=== PATIENT | male | born 1955 | race Caucasian/White ===

== ENCOUNTER → 2017-05-01 | Outpatient (CLI) | payer MEDICARE, BC, MEDICAID ==
[2016-07-07 08:31] VITALS: BP 136/79
[~2017-05-01] MED LIST: ALBUTEROL SULF0.5 M1 IH; ALBUTEROL2.5 MG/3 M IH; ANUCORT HC25 MG RC; ATROVENT I0.2 MG/1 M IH; CALCIUM WITH VI1 TAB PO; CEPHALEXIN250 M1 PO; COLACE1 SUP PO; COLACE100 M1 PO; DEPAKOTE250 M1 PO; DEPAKOTE250 MG PO; DEPAKOTE500 M1 PO; DEPAKOTE500 MG PO; DIVALPROEX SOD500 M1 PO; ENOXAPARIN40 MG/0.1 SQ; FISH OIL 1000MG1 CAP PO; FISH OIL1000 MG PO; FLOMAX PO; GOOD NEIGHBOR325 MG PO; IPRATROPIUM BROM3 M1 IH; KEPPRA1000 MG PO; LEVAQUIN 5500 MG/TA1 PO; LISINOPRIL-HYDR1 TA1 PO; LISINOPRIL/HCTZ1 TA2 PO; LISINOPRIL10 MG PO; LISINOPRIL20 MG PO; LOPERAMIDE2 MG PO; LOPRESSOR100 M1 PO; METOPROLOL SUC100 MG PO; METOPROLOL TART25 MG PO; MIRALAX PA17 GM/Dose PO; MUCINEX 60600 MG/TA1 PO; PAIN RELIEVER500 M2 PO; PEG 335017 GM/Dose PO; PERI-COLACE 301 SGL PO; PREDNISONE10 MG PO; PREDNISONE20 MG PO; SIMVASTATIN20 MG PO; TEGRETOL PO; TEGRETOL200 MG PO; TUSSIN DM 10 M118 ML PO; TYLENOL 325MG325 M1 PO; TYLENOL 325MG325 MG PO; TYLENOL 500MG500 MG PO; VIBRAMYCIN100 MG PO
[2017-05-01 15:35] LABS: ALBUMIN 3.4 g/dL (3.5-5.0); BUN/CREATININE RATIO 38.7 (6.0-26.0); CALCIUM 9.1 mg/dL (8.4-10.2); POTASSIUM 4.3 mmol/L (3.6-5.0); TOTAL BILIRUBIN 0.5 mg/dL (0.2-1.3); TOTAL PROTEIN 6.2 g/dL (6.3-8.2)
[2017-05-01 16:32] LABS: URINE WBC 0 /hpf (0-3)
[2017-05-01 18:01] LABS: URINE APPEARANCE CLEAR; URINE BILIRUBIN NEGATIVE (NEGATIVE); URINE BLOOD NEGATIVE (NEGATIVE); URINE COLOR YELLOW; URINE GLUCOSE NEGATIVE (NEGATIVE); URINE KETONE NEGATIVE (NEGATIVE); URINE LEUKOCYTE ESTERASE NEGATIVE (NEGATIVE); URINE NITRATE NEGATIVE (NEGATIVE); URINE PROTEIN(semi-quant) NEGATIVE (NEGATIVE); URINE UROBILINOGEN NORMAL (NORMAL)
== END ==
LOC: LAB 14:52
PROVIDERS: Family Medicine
DX: E78.00 Pure hypercholesterolemia, unspecified (principal); R39.15 Urgency of urination; R32 Unspecified urinary incontinence; I10 Essential (primary) hypertension; R56.1 Post traumatic seizures

== ENCOUNTER → 2017-05-01 | Outpatient (CLI) | payer MEDICARE, BC, MEDICAID ==
[2016-07-07 08:31] VITALS: BP 136/79
== END ==
LOC: LAB 16:16
DX: E78.00 Pure hypercholesterolemia, unspecified (principal); R39.15 Urgency of urination; R32 Unspecified urinary incontinence; I10 Essential (primary) hypertension; R56.1 Post traumatic seizures

== ENCOUNTER → 2017-05-07 | Outpatient (CLI) | payer MEDICARE, BC, MEDICAID ==
[2016-07-07 08:31] VITALS: BP 136/79
== END ==
LOC: LAB 09:02
DX: E78.00 Pure hypercholesterolemia, unspecified (principal); R73.9 Hyperglycemia, unspecified

== ENCOUNTER → 2017-08-12 | Outpatient (CLI) | payer MEDICARE, BC, MEDICAID ==
[2016-07-07 08:31] VITALS: BP 136/79
== END ==
LOC: RAD 10:03
DX: M25.572 Pain in left ankle and joints of left foot (principal); W19.XXXA Unspecified fall, initial encounter; M79.89 Other specified soft tissue disorders

== ENCOUNTER → 2017-08-29 | Outpatient (CLI) | payer MEDICARE, BC, MEDICAID ==
[2016-07-07 08:31] VITALS: BP 136/79
== END ==
LOC: RAD 14:04
DX: M19.072 Primary osteoarthritis, left ankle and foot (principal); M85.872 Other specified disorders of bone density and structure, left ankle and foot

== ENCOUNTER → 2017-09-04 | Outpatient (CLI) | payer MEDICARE, BC, MEDICAID ==
[2016-07-07 08:31] VITALS: BP 136/79
== END ==
LOC: RAD 10:00
DX: S92.212A Displaced fracture of cuboid bone of left foot, initial encounter for closed fracture (principal)

== ENCOUNTER → 2017-10-29 | Outpatient (CLI) | payer MEDICARE, BC, MEDICAID ==
[2016-07-07 08:31] VITALS: BP 136/79
== END ==
LOC: RAD 08:59
DX: S92.215D Nondisplaced fracture of cuboid bone of left foot, subsequent encounter for fracture with routine healing (principal); M85.872 Other specified disorders of bone density and structure, left ankle and foot; M79.9 Soft tissue disorder, unspecified

== ENCOUNTER 2017-12-26 08:52 | Emergency (ER) | payer MEDICARE, BC, MEDICAID ==
[~2017-12-26] VITALS: Wt 122.3 kg
[~2017-12-26 08:52] MED LIST changes: +CALCIUM WITH V1 EAC1 PO; -CALCIUM WITH VI1 TAB PO; -LOPRESSOR100 M1 PO; +METOPROLOL TAR100 M1 PO
[2017-12-26 09:31] LABS: HEMATOCRIT 44.1 % (42.0-52.0); HEMOGLOBIN 14.7 g/dL (13.5-18.0); MEAN CELL VOLUME 92 fl (78-100); MEAN CORPUSCULAR HEMOGLOBIN 31 pg (27-31); MEAN CORPUSCULAR HGB CONC 33 g/dL (33-37); MEAN PLATELET VOLUME 10.2 fl (7.4-10.4); PLATELET COUNT 125 K/mm3 (130-400); RED BLOOD COUNT 4.82 M/mm3 (4.20-5.60); RED CELL DISTRIBUTION WIDTH 13.4 % (11.5-14.5); WHITE BLOOD COUNT 11.5 K/mm3 (4.8-10.8)
[2017-12-26 09:37] LABS: ALBUMIN 3.5 g/dL (3.5-5.0); BUN/CREATININE RATIO 29.6 (6.0-26.0); CALCIUM 8.7 mg/dL (8.4-10.2); POTASSIUM 4.2 mmol/L (3.6-5.0); TOTAL BILIRUBIN 0.5 mg/dL (0.2-1.3); TOTAL PROTEIN 6.4 g/dL (6.3-8.2)
[2017-12-26 09:40] LABS: BAND 4 % (0-10); LYMPHOCYTE 11 % (20-51); MONOCYTE 14 % (3-10); NEUTROPHILS 71 % (42-75)
[2017-12-26 09:42] LABS: D-DIMER 0.51 mg/L FEU (0.15-0.50)
[2017-12-26 09:44] LABS: TROPONIN-I < 0.03 ng/mL (0.00-0.06)
[2017-12-26] MEDS ORDERED: DIVALPROEX SOD500 MG PO (10:22)
[2017-12-26] MEDS ORDERED: METOPROLOL TAR100 M1 PO (10:24)
[2017-12-26] MEDS ORDERED: IMODIUM A-D2 M2 PO (10:26)
[2017-12-26] MEDS ORDERED: ADVIL 200MG TA200 MG PO (10:26)
[2017-12-26] MEDS ORDERED: ROBAFEN DM COU118 ML PO (10:28)
[2017-12-26 14:04] VITALS: BP 153/74
== END 2017-12-26 14:07 | disposition other institution (70) ==
LOC: ED 08:52
PROVIDERS: Physician Assistant
DX: J18.9 Pneumonia, unspecified organism (principal); R09.02 Hypoxemia; J06.9 Acute upper respiratory infection, unspecified; Z79.82 Long term (current) use of aspirin; Z79.899 Other long term (current) drug therapy; I69.998 Other sequelae following unspecified cerebrovascular disease; I69.954 Hemiplegia and hemiparesis following unspecified cerebrovascular disease affecting left non-dominant side; I10 Essential (primary) hypertension; G40.802 Other epilepsy, not intractable, without status epilepticus
CPT/HCPCS: Q9967

== ENCOUNTER 2017-12-26 13:56 | Inpatient (IN) | payer MEDICARE, BC, MEDICAID ==
[~2017-12-26] VITALS: Wt 121.9 kg
[~2017-12-26 13:56] MED LIST changes: +ADVIL 200MG TA200 MG PO; +DIVALPROEX SOD500 MG PO; +IMODIUM A-D2 M2 PO; +ROBAFEN DM COU118 ML PO
--- NOTE | 2017-12-26 14:29 | NUR ---
ASSIST TO BED IN ROOM 204 X1 STAFF ASSIST. PATIENT ABLE TO RISE FROM W/C ON 2ND ATTEMPT WITH MINIMAL ASSIST. GAIT SLOW AND STEADY. DENIES SHORTNESS OF BREATH. OXYGEN REMAINS IN PLACE AT 2LPM PER NC. LAB AT BEDSIDE PRESENTLY FOR COLLECTION OF BLOOD CULTURES.
[2017-12-26 14:44] VITALS: BP 153/74
[2017-12-26 15:04] VITALS: BP 153/74
[2017-12-26 18:20] VITALS: BP 168/83
--- NOTE | 2017-12-26 19:30 | NUR ---
Report received from oNemy BABB. Patient resting supine in bed with bed alarm on. Call light in reach. Eyes closed. Oxygen in place at 2L/NC. No signs of pain or distress.
--- NOTE | 2017-12-26 20:30 | NUR ---
Assessment completed and HS medications given. Takes medications whole without difficulty. A/O x4. Denies pain. Denies shortness of breath. States has occasional cough. Unable to produced sputum. Educated on need for a sputum sample if he is able to produce any phelgm. Inquires on how long he needs to wear the oxygen. Educated on orders to keep saturations above 92% and that he wasn't holding those number in the ER. Ask patient if he was incontinent and he stated "no". On further inspection, bedpad and brief noted to be wet. Karen cares and brief change done by staff. Has fine rash to L groin area. Baby powder applied at this time. No other skin breakdown noted. INT to LFA flushed easily with 10 ML of NS. Repositoned to L side. Bed alarm on. Call light in reach.
[2017-12-26 23:00] VITALS: BP 121/67
[2017-12-27] VITALS (7 sets, daily range): BP systolic 110–154; BP diastolic 63–85
--- NOTE | 2017-12-27 02:12 | NUR ---
Incontinent of urine. Gown and brief and bedpad changed. Repositioned. IV Rocephin started. INT patent and flushed easily with NS. Bed alarm on. Call light in reach.
--- NOTE | 2017-12-27 06:27 | NUR ---
Awake all shift. Denies pain. No signs of respiratory distress. Unable to produce sputum for sputum culture. Rang call light every 30-45 minutes for various wants/needs. Incontinent of urine or called for urinal then did not pee. Repositioned by staff. Bed alarm on. Call light in reach.
--- NOTE | 2017-12-27 07:07 | NUR ---
Report to Noemy BABB
--- NOTE | 2017-12-27 07:20 | NUR ---
REPORT RECEIVED FROM JERRELL GARCÍA LPN
--- NOTE | 2017-12-27 07:50 | NUR ---
patient sitting up on edge of bed. shift assessment complete. patient alert and oriented x4. when asked how his night was states "kenny rough" reports that he didn't sleep well lastnight. reports that overall he is "feeling better" reports that his breathing feels better today states "seems to be improving" does report having shortness of breath at rest. on oxygen via nasal cannula at 2l. patient reports having productive cough. patient has history of stroke. has no movement in left upper ext. has very minimal movement in left lower ext. asks this nurse multiple times "do you think i'm getting better" patient assisted into recliner for breakfast. 2 person assist required for pivot transfer. patient uses quad cane gait belt in place. patient wears brace to left lower ext. patient slow to move left leg during pivot transfer. but is able to pivot to recliner. patient's call light within reach. chair alarm on.
[2017-12-27 08:27] LABS: HEMATOCRIT 42.7 % (42.0-52.0); HEMOGLOBIN 14.2 g/dL (13.5-18.0); MEAN CELL VOLUME 93 fl (78-100); MEAN CORPUSCULAR HEMOGLOBIN 31 pg (27-31); MEAN CORPUSCULAR HGB CONC 33 g/dL (33-37); MEAN PLATELET VOLUME 10.5 fl (7.4-10.4); PLATELET COUNT 110 K/mm3 (130-400); RED BLOOD COUNT 4.58 M/mm3 (4.20-5.60); RED CELL DISTRIBUTION WIDTH 13.3 % (11.5-14.5); WHITE BLOOD COUNT 6.9 K/mm3 (4.8-10.8)
[2017-12-27 08:36] LABS: BUN/CREATININE RATIO 27.9 (6.0-26.0); CALCIUM 8.3 mg/dL (8.4-10.2); POTASSIUM 4.2 mmol/L (3.6-5.0)
[2017-12-27 09:03] LABS: BAND 7 % (0-10); LYMPHOCYTE 21 % (20-51); MONOCYTE 16 % (3-10); NEUTROPHILS 56 % (42-75)
--- NOTE | 2017-12-27 15:50 | NUR ---
in with patient at this time.
--- NOTE | 2017-12-27 19:00 | NUR ---
BEDSIDE SHIFT REPORT RECIEVED FROM HOLLEY ARREDONDO. PATIENT SLEEPING IN BED, CALL LIGHT WITHIN REACH AND BED ALARM ON.
--- NOTE | 2017-12-27 20:45 | NUR ---
PATIENT RESTING IN BED. SHIFT ASSESSMENT COMPLETED AT THIS TIME. PATIENT A/O X4, DENIES PAIN. LUNGS COARSE IN BASES WITH EXPIRATORY WHEEZES IN UPPER LOBES, PATIENT REPORTS CLEAR PRODUCTIVE COUGH AND SHORTNESS OF BREATH AT REST. PATIENT ON 2L O2 VIA NASAL CANNULA. 20 G IV TO RIGHT WRIST CDI, FLUSHES EASILY WITHOUT BLOOD RETURN. LEFT GROIN REDDENED, BARRIER CREAM APPLIED. +2 PITTING EDEMA NOTED TO BLE. TURN AND TOILET Q2H CONTINUED. SCD'S ON. HS MEDICATIONS GIVEN WITHOUT DIFFICULTIES. PATIENT WITHOUT NEEDS AT THIS TIME, WILL CONTINUE TO MONITOR. CALL LIGHT WITHIN REACH AND BED ALARM ON.
[2017-12-28 03:02] VITALS: BP 144/79
[2017-12-28 06:22] VITALS: BP 121/80
--- NOTE | 2017-12-28 07:10 | NUR ---
bedside report received from thomas millan
--- NOTE | 2017-12-28 07:40 | NUR ---
patient lying in bed. shift assessment complete. patient alert and oriented x4. when asked how he was doing this morning states "i'm okay" reports that he feels as though he is "breathing better" this morning. denies shortness of breath or difficulties breathing. on oxygen via nasal cannula at 2L. has occasional cough that patient reports is productive. patient has coarse audible crackles to upper lobes bilaterally. exp wheezes in lower lobes. on oxygen via nasal cannula at 2l. patient has not had a bowel movement since admission and when asked when his last bowel movement was before admission states "a couple days before" bowel sounds audible in all quadrants. patient reports passing flatus. abd firm. patient's urine dark orange and concentrated. encouraged patient to make sure he is drinking a lot of water today. patient's call light within reach. bed alarm on.
--- NOTE | 2017-12-28 08:15 | NUR ---
Patient assisted up to recliner for breakfast. brief removed when patient was getting up to assess skin. patient has reddened buttocks. noted that patient has a very slightly raised pink macular rash to coccyx area. area is approximately grapefruit to cantaloupe sized. patient denies any itching or discomforts to the area. noted that patient does have 2 marble sized circular pink colored spots to left thigh. will continue to monitor.
--- NOTE | 2017-12-28 09:06 | NUR ---
dr. aguirre called and notified of patient's lungs sounds this morning and sp02.
[2017-12-28 09:55] LABS: EOS # 0.2 (0.04-0.40); EOS % 3.1 % (0.0-4.0); HEMATOCRIT 43.2 % (42.0-52.0); HEMOGLOBIN 14.1 g/dL (13.5-18.0); LYMPH# 0.9 (1.50-4.00); MEAN CELL VOLUME 94 fl (78-100); MEAN CORPUSCULAR HEMOGLOBIN 31 pg (27-31); MEAN CORPUSCULAR HGB CONC 33 g/dL (33-37); MEAN PLATELET VOLUME 10.2 fl (7.4-10.4); MONO # 0.5 (0.20-0.80); NEU # 3.8 (1.40-6.50); PLATELET COUNT 123 K/mm3 (130-400); RED BLOOD COUNT 4.61 M/mm3 (4.20-5.60); RED CELL DISTRIBUTION WIDTH 13.1 % (11.5-14.5); WHITE BLOOD COUNT 5.4 K/mm3 (4.8-10.8)
--- NOTE | 2017-12-28 09:57 | NUR ---
called and notified of patient's pco2 of 56. orders to keep oxygen on lowest amount possible while maintaining sp02 greater than 89%. oxygen lowered to 1l at this time.
--- NOTE | 2017-12-28 10:00 | NUR ---
patient's sp02 92% on 1L nasal cannula. decreased oxygen to 0.5 L at this time.
[2017-12-28 10:05] LABS: BUN/CREATININE RATIO 28.9 (6.0-26.0); CALCIUM 8.5 mg/dL (8.4-10.2)
[2017-12-28 11:00] VITALS: BP 133/75
[2017-12-28 15:10] VITALS: BP 134/84
--- NOTE | 2017-12-28 17:00 | NUR ---
THIS NURSE IN WITH MICA LAMINATING MACHINE FEEDER GETTING PATIENT UP FOR DINNER.NOTED THAT AREA TO SACRUM/COCCYX THAT RASH WAS FIRST NOTICED THIS MORNING HAS BECOME MORE PROMINANT AND BRIGHTER. THERE IS NOW THE MORE CENTRALIZED AREA TO COCCYX/SACRUM WITH PINK MACULAR RASH EXTENDING TO BOTH SIDES OF BACK/HIPS AND EXTENDS UP TO PATIENT'S SHOULDER ON LEFT SIDE OF BACK. THERE IS ALSO A SMALL AREA TO PATIENT'S CHEST. PATIENT REPORTS THAT AREA IS SLIGHTLY ITCHY. WILL NOTIFY .
[2017-12-28 18:31] VITALS: BP 123/80
--- NOTE | 2017-12-28 19:00 | NUR ---
BEDSIDE SHIFT REPORT RECIEVED FROM HOLLEY ARREDONDO. PATIENT RESTING IN BED, CALL LIGHT WITHIN REACH AND BED ALARM ON.
--- NOTE | 2017-12-28 20:55 | NUR ---
PATIENT RESTING IN BED. SHIFT ASSESSMENT COMPLETED AT THIS TIME. PATIENT A/O X4, DENIES PAIN. LUNGS DIMINISHED WITH EXPIRATORY WHEEZES THROUGHOUT, REPORTS PRODUCTIVE COUGH AND DENIES SHORTNESS OF BREATH. 1L O2 FLOWING VIA NASAL CANNULA. 20 G IV TO RIGHT FOREARM CDI, FLUSHES EASILY WITHOUT BLOOD RETURN. PATIENT WITH RASH TO LOWER BACK, DOES NOT COMPLAIN ABOUT ITCHING AT THIS TIME. HS MEDICATIONS GIVEN. PATIENT WITHOUT FURTHER NEEDS, WILL CONTINUE TO MONITOR. CALL LIGHT WITHIN REACH AND BED ALARM ON.
[2017-12-28 22:59] VITALS: BP 129/82
[2017-12-29 02:58] VITALS: BP 124/79
[2017-12-29 06:29] VITALS: BP 114/76
--- NOTE | 2017-12-29 07:10 | NUR ---
REPORT RECEIVED FROM HOLLEY STAUFFER
--- NOTE | 2017-12-29 08:00 | NUR ---
HOLLIE FROM [facility] CONTACTED AT THIS TIME TO SEE WHAT PATIENT'S BASELINE IS FAR MOBILITY AND IF HE IS INCONTINENT OF URINE OR IFHE HAS URINARY FREQUENCY. REPORTED THAT PATIENT IS ABLE TO WALK 1 JUANA FROM ROOM TO DINING AREA AND WALKS TO AND FROM THE BATHROOM DURING THE DAY USES THE URINAL AT NIGHT DUE TO FREQUENCY. HOLLIE ALSO REPORTS THAT PATIENT HAS HAD MULTIPLE FALLS IN THE PAST AND IS VERY WEARY OF NURSING STAFF HE DOESN'T KNOW. REPORTS THAT IF HE DOES NOT KNOW STAFF WELL OR DOESN'T TRUST THEM YET HE WONT REALLY ACT LIKE HE CAN MOVE AROUND AND DOESN'T GET UP WITH THEM BUT IF HE IS COMFORTABLE WITH YOU HE WILL GET UP FOR YOU AND PARTICIPATE. HOLLIE IS GOING TO COME OVER AT 1100 THIS MORNING AND HELP GET PATIENT UP WITH STAFF TO GO THROUGH HIS ROUTINE AND TO SEE IF PATIENT IS AT HIS BASELINE FAR MOBILITY AND IF THEY ARE COMFORTABLE WITH HIM COMING BACK TO [facility].
--- NOTE | 2017-12-29 08:00 | NUR ---
DR. TRINIDAD IN TO SEE PATIENT. THIS NURSE IN ROOM AT TIME.
--- NOTE | 2017-12-29 08:20 | NUR ---
HOLLIE FROM [facility] CONTACTED AT THIS TIME TO SEE WHAT PATIENT'S BASELINE IS FAR MOBILITY AND IF HE IS INCONTINENT OF URINE OR IFHE HAS URINARY FREQUENCY. REPORTED THAT PATIENT IS ABLE TO WALK 1 JUANA FROM ROOM TO DINING AREA AND WALKS TO AND FROM THE BATHROOM DURING THE DAY USES THE URINAL AT NIGHT DUE TO FREQUENCY. HOLLIE ALSO REPORTS THAT PATIENT HAS HAD MULTIPLE FALLS IN THE PAST AND IS VERY WEARY OF NURSING STAFF HE DOESN'T KNOW. REPORTS THAT IF HE DOES NOT KNOW STAFF WELL OR DOESN'T TRUST THEM YET HE WONT REALLY ACT LIKE HE CAN MOVE AROUND AND DOESN'T GET UP WITH THEM BUT IF HE IS COMFORTABLE WITH YOU HE WILL GET UP FOR YOU AND PARTICIPATE. HOLLIE IS GOING TO COME OVER AT 1100 THIS MORNING AND HELP GET PATIENT UP WITH STAFF TO GO THROUGH HIS ROUTINE AND TO SEE IF PATIENT IS AT HIS BASELINE FAR MOBILITY AND IF THEY ARE COMFORTABLE WITH HIM COMING BACK TO [facility].
[2017-12-29 11:09] VITALS: BP 136/87
--- NOTE | 2017-12-29 11:30 | NUR ---
KELLY SALAZAR EMPLOYEES HOLLIE AND OTHER [employer] OPERATOR FROM FACILITY IN PATIENT'S ROOM TO SHOW NURSING STAFF PATIENT'S ROUTINE FOR TRANSFERING AND TO EVALUATE HOW HE IS CURRENTLY GETTING AROUND TO SEE IF PATIENT IS BACK TO BASELINE AND IF HE IS PHYSICALLY STRONG ENOUGH TO GO BACK TO [facility] [place]. HOLLIE REPORTS THAT PATIENT IS BACK TO BASELINE FROM HER ENCOUNTER AND THAT SHE FEELS COMFORTABLE WITH PATIENT COMING BACK AT THIS POINT IF FEELS THOUGH HE IS MEDICALLY STABLE AND READY FOR DISCHARGE. LARS REPORTED TO KELLY SALAZAR EMPOLYEES THAT HE WAS HAPPY WITH HIS CARE HERE AT THE HOSPITAL AND WHEN ASKED IF HE WANTED THEM TO WALK HIM BACK TO CHAIR OR IF HE FELT THOUGH THE NURSING STAFF HERE CAN GO FROM HERE PATIENT STATES "I THINK THEY CAN HANDLE IT".
--- NOTE | 2017-12-29 11:40 | NUR ---
PATIENT USING BED JAMES. PATIENT CONTINUES TO HAVE RASH TO BACK. NOTED THAT CENTRALIZED AREA TO COCCYX/ SACRUM TODAY IS RAISED AND APPEARS TO BE INFLAMED AND IS MORE OF A BRIGHT RED AREA IS BLANCHABLE MIDDLE OF AREA IS MORE OF A DARK RED WITH AND AREA APROXIMATELY QUATER TO PING PONG BALL SIZED THAT IS PURPLE. DARK RED AND PURPLE AREAS ARE NON BLANCHABLE. AREA TO BILAT LOWER BACK/HIPS AND LEFT SIDE OF BACK THAT RASH WAS NOTED YESTERDAY DOES NOT APPEAR TO BE CHANGED IN SIZE BUT IS A RED COLOR TODAY AND SKIN ON SOME OF REDDENED SPOTS IS STARTING TO GET DRY. DR. TRINIDAD CALLED AND NOTIFIED OF RASH HE CAME TOBEDSIDE TO LOOK AT AREA. ORDER RECEIVED TO APPLY STEROID CREAM TO AREA. NO FURTHER ORDERS AT THIS TIME.
[2017-12-29 12:30] LABS: PH-URINE 5.5 (5.0 - 8.0); URINE APPEARANCE CLEAR; URINE BILIRUBIN NEGATIVE (NEGATIVE); URINE BLOOD NEGATIVE (NEGATIVE); URINE COLOR YELLOW; URINE GLUCOSE NEGATIVE (NEGATIVE); URINE KETONE NEGATIVE (NEGATIVE); URINE LEUKOCYTE ESTERASE TRACE (NEGATIVE); URINE NITRATE NEGATIVE (NEGATIVE); URINE PROTEIN(semi-quant) NEGATIVE (NEGATIVE); URINE UROBILINOGEN NORMAL (NORMAL)
[2017-12-29 15:05] VITALS: BP 134/81
--- NOTE | 2017-12-29 17:00 | NUR ---
THIS NURSE IN WITH TACKING MACHINE OPERATOR GETTING PATIENT UP FOR DINNER.AREA TO SACRUM/COCCYX THAT RASH WAS FIRST NOTICED CONTINUES TO BE THERE. NOTED THAT RASH HAS EXTENDED TO BOTH SIDES OF BACK/HIPS AND EXTENDS UP TO PATIENT'S SHOULDER ON LEFT SIDE OF BACK. THERE IS ALSO A SMALL AREA TO PATIENT'S CHEST. PATIENT REPORTS THAT AREA IS SLIGHTLY ITCHY. WILL NOTIFY .
--- NOTE | 2017-12-29 17:39 | NUR ---
Referred pt to [facility] DME for Trilogy set up in hospital and assistance w/ training pt for Trilogy use. Pt is in agreement. STONE FABRICATOR FANNY is notified that pt will be admitted to [facility] status this evening for PT/OT evals to treat for energy conservation and adjustment to use of portable O2, and adjustment to use of trilogy.
[2017-12-29 18:20] VITALS: BP 138/74
== END 2017-12-29 17:04 | disposition swing bed (61) | DRG 191 ==
LOC: MED/SURG 13:56
PROVIDERS: Family Medicine; ADMIT Physician Assistant
DX: J44.1 Chronic obstructive pulmonary disease with (acute) exacerbation (principal); I69.354 Hemiplegia and hemiparesis following cerebral infarction affecting left non-dominant side; J96.11 Chronic respiratory failure with hypoxia; E66.2 Morbid (severe) obesity with alveolar hypoventilation; N39.0 Urinary tract infection, site not specified; I10 Essential (primary) hypertension; Z68.33 Body mass index [BMI] 33.0-33.9, adult; Z87.820 Personal history of traumatic brain injury
CPT/HCPCS: J0456; J0696; J1650; J7050

== ENCOUNTER 2017-12-29 15:58 | Inpatient (IN) | payer MEDICARE, BC, MEDICAID ==
[~2017-12-29] VITALS: Ht 188 cm; Wt 119.9 kg
[2017-12-29 18:29] VITALS: BP 139/74
[2017-12-29 18:31] VITALS: BP 139/74
[2017-12-29 19:00] VITALS: BP 138/74
[2017-12-30 06:29] VITALS: BP 126/67
[2017-12-30 18:28] VITALS: BP 126/83
[2017-12-31 06:22] VITALS: BP 126/64
[2017-12-31 18:01] VITALS: BP 113/61
[2018-01-01 06:24] VITALS: BP 102/59
[2018-01-01 15:09] LABS: URINE APPEARANCE CLEAR; URINE BILIRUBIN NEGATIVE (NEGATIVE); URINE BLOOD TRACE (NEGATIVE); URINE COLOR YELLOW; URINE GLUCOSE NEGATIVE (NEGATIVE); URINE KETONE NEGATIVE (NEGATIVE); URINE LEUKOCYTE ESTERASE TRACE (NEGATIVE); URINE NITRATE NEGATIVE (NEGATIVE); URINE PROTEIN(semi-quant) TRACE mg/dL (NEGATIVE); URINE UROBILINOGEN NORMAL (NORMAL)
[2018-01-01 18:33] VITALS: BP 143/90
[2018-01-02 06:30] VITALS: BP 114/69
[2018-01-02 18:04] VITALS: BP 114/67
[2018-01-03 06:21] VITALS: BP 107/65
[2018-01-03 08:48] VITALS: BP 130/82
[2018-01-03 18:36] VITALS: BP 145/77
[2018-01-04 06:39] VITALS: BP 163/87
[2018-01-04 17:14] LABS: PH-URINE 6.5 (5.0 - 8.0); URINE APPEARANCE CLEAR; URINE BILIRUBIN NEGATIVE (NEGATIVE); URINE BLOOD NEGATIVE (NEGATIVE); URINE COLOR YELLOW; URINE KETONE SMALL (NEGATIVE); URINE LEUKOCYTE ESTERASE NEGATIVE (NEGATIVE); URINE NITRATE NEGATIVE (NEGATIVE); URINE PROTEIN(semi-quant) NEGATIVE (NEGATIVE); URINE UROBILINOGEN NORMAL (NORMAL); URINE WBC 0-1 /hpf (0-3)
[2018-01-04 18:05] VITALS: BP 103/83
[2018-01-05 06:17] VITALS: BP 144/76
[2018-01-05 18:33] VITALS: BP 105/55
[2018-01-06 06:29] VITALS: BP 107/67
[2018-01-06 18:21] VITALS: BP 127/70
[2018-01-07 06:26] VITALS: BP 134/85
[2018-01-07 18:05] VITALS: BP 121/69
[2018-01-08 06:29] VITALS: BP 117/79
[2018-01-08 07:29] LABS: BUN/CREATININE RATIO 25.6 (6.0-26.0); CALCIUM 8.4 mg/dL (8.4-10.2); POTASSIUM 4.2 mmol/L (3.6-5.0)
[2018-01-08 18:32] VITALS: BP 153/90
[2018-01-09 06:07] VITALS: BP 122/66
[2018-01-09 19:06] VITALS: BP 131/70
[2018-01-10 06:11] VITALS: BP 118/74
[2018-01-10 18:16] VITALS: BP 126/84
[2018-01-11 06:10] VITALS: BP 129/82
[2018-01-11 18:12] VITALS: BP 129/76
[2018-01-12 06:28] VITALS: BP 121/66
[2018-01-12] MEDS ORDERED: IPRATROPIUM BROM3 M1 IH (08:14)
[2018-01-12] MEDS ORDERED: KLONOPIN 0.5MG0.5 MG PO (08:16)
== END 2018-01-12 13:35 | disposition home health service (06) | DRG 948 ==
LOC: MED/SURG 15:58
PROVIDERS: Family Medicine; ADMIT Family Medicine
DX: R53.81 Other malaise (principal); E66.2 Morbid (severe) obesity with alveolar hypoventilation; N39.0 Urinary tract infection, site not specified; I69.354 Hemiplegia and hemiparesis following cerebral infarction affecting left non-dominant side; J96.11 Chronic respiratory failure with hypoxia; I10 Essential (primary) hypertension; G40.909 Epilepsy, unspecified, not intractable, without status epilepticus; Z87.820 Personal history of traumatic brain injury; Z68.33 Body mass index [BMI] 33.0-33.9, adult; R73.9 Hyperglycemia, unspecified; T38.0X5A Adverse effect of glucocorticoids and synthetic analogues, initial encounter; I69.398 Other sequelae of cerebral infarction; J44.9 Chronic obstructive pulmonary disease, unspecified
CPT/HCPCS: J1650; J7512; Q0177

== ENCOUNTER → 2018-01-21 | Outpatient (CLI) | payer MEDICARE, BC, MEDICAID ==
[2018-01-12 06:28] VITALS: BP 121/66
[~2018-01-21] MED LIST changes: +KLONOPIN 0.5MG0.5 MG PO
== END ==
LOC: LAB 10:16
DX: J96.12 Chronic respiratory failure with hypercapnia (principal)

== ENCOUNTER → 2018-02-19 | Outpatient (CLI) | payer MEDICARE, BC, MEDICAID | LOC: VAS 16:23 → RAD 17:00 | DX: R06.02 Shortness of breath (principal) ==

== ENCOUNTER → 2018-02-20 | Outpatient (CLI) | payer MEDICARE, BC, MEDICAID ==
[2018-02-20 11:48] LABS: URINE APPEARANCE CLEAR; URINE COLOR YELLOW
[2018-02-20 11:49] LABS: URINE BILIRUBIN NEGATIVE (NEGATIVE); URINE BLOOD NEGATIVE (NEGATIVE); URINE GLUCOSE NEGATIVE (NEGATIVE); URINE KETONE NEGATIVE (NEGATIVE); URINE LEUKOCYTE ESTERASE TRACE (NEGATIVE); URINE NITRATE NEGATIVE (NEGATIVE); URINE PROTEIN(semi-quant) NEGATIVE (NEGATIVE); URINE UROBILINOGEN NORMAL (NORMAL)
== END ==
LOC: LAB 10:17
PROVIDERS: Family Medicine
DX: R06.02 Shortness of breath (principal); M54.9 Dorsalgia, unspecified; N39.0 Urinary tract infection, site not specified

== ENCOUNTER 2018-04-25 11:21 | Emergency (ER) | payer MEDICARE, BC, MEDICAID ==
[~2018-04-25] VITALS: Ht 185.4 cm; Wt 121.4 kg
[2018-04-25 12:04] LABS: HEMATOCRIT 46.8 % (42.0-52.0); HEMOGLOBIN 15.8 g/dL (13.5-18.0); MEAN CELL VOLUME 90 fl (78-100); MEAN CORPUSCULAR HEMOGLOBIN 30 pg (27-31); MEAN CORPUSCULAR HGB CONC 34 g/dL (33-37); MEAN PLATELET VOLUME 9.9 fl (7.4-10.4); PLATELET COUNT 98 K/mm3 (130-400); RED BLOOD COUNT 5.21 M/mm3 (4.20-5.60); RED CELL DISTRIBUTION WIDTH 13.3 % (11.5-14.5)
[2018-04-25] MEDS ORDERED: KLONOPIN 0.5MG0.5 MG PO (12:05)
[2018-04-25] MEDS ORDERED: LEVETIRACETAM500 M2 PO (12:08)
[2018-04-25] MEDS ORDERED: LOPRESSOR 550 MG/TAB PO (12:09)
[2018-04-25 12:15] LABS: ALBUMIN 3.7 g/dL (3.5-5.0); POTASSIUM 4.3 mmol/L (3.6-5.0); TOTAL BILIRUBIN 0.7 mg/dL (0.2-1.3); TOTAL PROTEIN 6.4 g/dL (6.3-8.2)
[2018-04-25 12:16] LABS: STREP SCREEN NEGATIVE (NEGATIVE)
[2018-04-25 12:30] LABS: LYMPHOCYTE 17 % (20-51); MONOCYTE 11 % (3-10); NEUTROPHILS 72 % (42-75)
[2018-04-25 13:05] LABS: URINE APPEARANCE CLEAR; URINE BILIRUBIN NEGATIVE (NEGATIVE); URINE BLOOD TRACE (NEGATIVE); URINE COLOR YELLOW; URINE GLUCOSE NEGATIVE (NEGATIVE); URINE KETONE NEGATIVE (NEGATIVE); URINE LEUKOCYTE ESTERASE TRACE (NEGATIVE); URINE NITRATE NEGATIVE (NEGATIVE); URINE PROTEIN(semi-quant) NEGATIVE (NEGATIVE); URINE UROBILINOGEN NORMAL (NORMAL)
[2018-04-25] MEDS ORDERED: LEVAQUIN 5500 MG/TA1 PO (13:10)
[2018-04-25 13:35] VITALS: BP 119/74
== END 2018-04-25 13:35 | disposition home or self-care (01) ==
LOC: ED 11:21
PROVIDERS: Nurse Practitioner Family
DX: J44.0 Chronic obstructive pulmonary disease with (acute) lower respiratory infection (principal); J20.9 Acute bronchitis, unspecified; N39.0 Urinary tract infection, site not specified; E11.9 Type 2 diabetes mellitus without complications; I10 Essential (primary) hypertension; I69.954 Hemiplegia and hemiparesis following unspecified cerebrovascular disease affecting left non-dominant side; Z79.82 Long term (current) use of aspirin; Z87.891 Personal history of nicotine dependence; Z79.899 Other long term (current) drug therapy; R33.9 Retention of urine, unspecified; Z87.820 Personal history of traumatic brain injury

== ENCOUNTER → 2018-04-27 | Outpatient (CLI) | payer MEDICARE, BC, MEDICAID ==
[2018-04-25 13:35] VITALS: BP 119/74
[~2018-04-27] MED LIST changes: +LEVETIRACETAM500 M2 PO; +LOPRESSOR 550 MG/TAB PO
[2018-04-27 11:50] LABS: HEMATOCRIT 44.4 % (42.0-52.0); HEMOGLOBIN 14.9 g/dL (13.5-18.0); MEAN CELL VOLUME 90 fl (78-100); MEAN CORPUSCULAR HEMOGLOBIN 30 pg (27-31); MEAN CORPUSCULAR HGB CONC 34 g/dL (33-37); MEAN PLATELET VOLUME 9.7 fl (7.4-10.4); PLATELET COUNT 93 K/mm3 (130-400); RED BLOOD COUNT 4.91 M/mm3 (4.20-5.60); RED CELL DISTRIBUTION WIDTH 13.2 % (11.5-14.5); WHITE BLOOD COUNT 5.4 K/mm3 (4.8-10.8)
[2018-04-27 12:05] LABS: ALBUMIN 3.5 g/dL (3.5-5.0); CALCIUM 9.1 mg/dL (8.4-10.2); POTASSIUM 4.1 mmol/L (3.6-5.0); TOTAL BILIRUBIN 0.6 mg/dL (0.2-1.3); TOTAL PROTEIN 6.2 g/dL (6.3-8.2)
[2018-04-27 13:02] LABS: LYMPHOCYTE 31 % (20-51); MONOCYTE 13 % (3-10); NEUTROPHILS 52 % (42-75)
== END ==
LOC: LAB 11:28
PROVIDERS: Family Medicine
DX: J40 Bronchitis, not specified as acute or chronic (principal); R56.9 Unspecified convulsions; E78.00 Pure hypercholesterolemia, unspecified; R73.9 Hyperglycemia, unspecified; R32 Unspecified urinary incontinence; R39.15 Urgency of urination

== ENCOUNTER → 2018-05-14 | Outpatient (CLI) | payer MEDICARE, BC, MEDICAID ==
[2018-04-25 13:35] VITALS: BP 119/74
== END ==
LOC: LAB 13:46
DX: R56.9 Unspecified convulsions (principal)

== ENCOUNTER → 2018-06-09 | Outpatient (CLI) | payer MEDICARE, BC, MEDICAID | LOC: LAB 11:12 | DX: R56.9 Unspecified convulsions (principal) ==

== ENCOUNTER → 2018-06-30 | Outpatient (CLI) | payer MEDICARE, BC, MEDICAID | LOC: LAB 08:48 | DX: R56.9 Unspecified convulsions (principal) ==

== ENCOUNTER → 2019-01-01 | Outpatient (CLI) | payer MEDICARE, BC ==
[2019-01-01 13:29] LABS: URINE APPEARANCE CLEAR; URINE COLOR YELLOW
[2019-01-01 13:30] LABS: PH-URINE 7.5 (5.0 - 8.0); URINE BILIRUBIN NEGATIVE (NEGATIVE); URINE BLOOD NEGATIVE (NEGATIVE); URINE GLUCOSE NEGATIVE (NEGATIVE); URINE KETONE NEGATIVE (NEGATIVE); URINE LEUKOCYTE ESTERASE NEGATIVE (NEGATIVE); URINE NITRATE NEGATIVE (NEGATIVE); URINE PROTEIN(semi-quant) NEGATIVE (NEGATIVE); URINE UROBILINOGEN NORMAL (NORMAL); URINE WBC 0-1 /hpf (0-3)
== END ==
LOC: LAB 12:56
PROVIDERS: Family Medicine
DX: I63.9 Cerebral infarction, unspecified (principal); I69.354 Hemiplegia and hemiparesis following cerebral infarction affecting left non-dominant side; R56.9 Unspecified convulsions; I10 Essential (primary) hypertension; J96.12 Chronic respiratory failure with hypercapnia; J44.9 Chronic obstructive pulmonary disease, unspecified; N39.498 Other specified urinary incontinence; R39.15 Urgency of urination

== ENCOUNTER 2019-03-07 13:53 | Emergency (ER) | payer MEDICARE, BC ==
[~2019-03-07] VITALS: Ht 180.3 cm; Wt 129.9 kg
[2019-03-07] MEDS ORDERED: DIVALPROEX SOD250 MG PO (14:24)
[2019-03-07] MEDS ORDERED: FLOVENT DI100 MCG/Ac IH (14:48)
[2019-03-07 15:15] LABS: HEMATOCRIT 42.4 % (42.0-52.0); HEMOGLOBIN 14.2 g/dL (13.5-18.0); MEAN CELL VOLUME 89 fl (78-100); MEAN CORPUSCULAR HEMOGLOBIN 30 pg (27-31); MEAN CORPUSCULAR HGB CONC 34 g/dL (33-37); MEAN PLATELET VOLUME 10.5 fl (7.4-10.4); PLATELET COUNT 125 K/mm3 (130-400); RED BLOOD COUNT 4.77 M/mm3 (4.20-5.60); RED CELL DISTRIBUTION WIDTH 13.1 % (11.5-14.5)
[2019-03-07 15:23] LABS: ALBUMIN 3.6 g/dL (3.4-4.8)
[2019-03-07 15:24] LABS: POTASSIUM 4.2 mmol/L (3.5-5.1); SODIUM 137 mmol/L (136-145)
[2019-03-07 15:26] LABS: GLUCOSE 130 mg/dL (75-110); TOTAL PROTEIN 6.2 g/dL (6.2-8.1)
[2019-03-07 15:27] LABS: CARBON DIOXIDE 27 mmol/L (23-31)
[2019-03-07 15:31] LABS: AST-SGOT 11 U/L (5-34); D-DIMER 0.54 mg/L FEU (0.15-0.50)
[2019-03-07 15:32] LABS: ALT/SGPT 16 U/L (0-55)
[2019-03-07 15:43] LABS: TROPONIN-I < 0.03 ng/mL (<0.030)
[2019-03-07 15:46] LABS: BAND 1 % (0-10); LYMPHOCYTE 10 % (20-51); MONOCYTE 8 % (3-10); NEUTROPHILS 81 % (42-75)
[2019-03-07 15:59] LABS: TOTAL BILIRUBIN 0.6 mg/dL (0.2-1.2)
[2019-03-07] MEDS ORDERED: AUGMENTIN 875-1 EAC1 PO (17:10)
[2019-03-07 17:46] VITALS: BP 140/68
== END 2019-03-07 17:54 | disposition home or self-care (01) ==
LOC: ED 13:53
PROVIDERS: Family Medicine
DX: H66.93 Otitis media, unspecified, bilateral (principal); J44.9 Chronic obstructive pulmonary disease, unspecified; I10 Essential (primary) hypertension; I25.10 Atherosclerotic heart disease of native coronary artery without angina pectoris; Z86.73 Personal history of transient ischemic attack (TIA), and cerebral infarction without residual deficits; F41.9 Anxiety disorder, unspecified; Z86.69 Personal history of other diseases of the nervous system and sense organs; Z88.1 Allergy status to other antibiotic agents; Z79.82 Long term (current) use of aspirin; Z79.51 Long term (current) use of inhaled steroids
CPT/HCPCS: J7030; Q9967

== ENCOUNTER → 2019-03-11 | Outpatient (CLI) | payer MEDICARE, BC ==
[2019-03-07 17:46] VITALS: BP 140/68
[~2019-03-11] MED LIST changes: +AUGMENTIN 875-1 EAC1 PO; +DIVALPROEX SOD250 MG PO; +FLOVENT DI100 MCG/Ac IH
== END ==
LOC: RAD 13:52
DX: Z13.89 Encounter for screening for other disorder (principal); R60.0 Localized edema; H66.92 Otitis media, unspecified, left ear

== ENCOUNTER → 2019-03-25 | Outpatient (CLI) | payer MEDICARE, BC ==
[2019-03-07 17:46] VITALS: BP 140/68
[2019-03-25 10:50] LABS: PROTHROMBIN TIME 77.8 SECONDS (9.0-12.0)
== END ==
LOC: LAB 09:44 → RAD 09:44
PROVIDERS: Family Medicine
DX: M79.605 Pain in left leg (principal); I82.409 Acute embolism and thrombosis of unspecified deep veins of unspecified lower extremity

== ENCOUNTER → 2019-05-27 | Outpatient (CLI) | payer MEDICARE, BC | LOC: LAB 07:42 | DX: Z12.5 Encounter for screening for malignant neoplasm of prostate (principal); Z12.12 Encounter for screening for malignant neoplasm of rectum; E78.00 Pure hypercholesterolemia, unspecified; R56.9 Unspecified convulsions ==

== ENCOUNTER → 2019-10-22 | Outpatient (CLI) | payer MEDICARE, BC ==
[2019-10-22 14:57] LABS: PH-URINE 7.5 (5.0 - 8.0); URINE APPEARANCE CLEAR; URINE BILIRUBIN NEGATIVE (NEGATIVE); URINE BLOOD NEGATIVE (NEGATIVE); URINE COLOR YELLOW; URINE GLUCOSE NEGATIVE (NEGATIVE); URINE KETONE NEGATIVE (NEGATIVE); URINE LEUKOCYTE ESTERASE NEGATIVE (NEGATIVE); URINE NITRATE NEGATIVE (NEGATIVE); URINE PROTEIN(semi-quant) TRACE mg/dL (NEGATIVE); URINE UROBILINOGEN NORMAL (NORMAL)
== END ==
LOC: LAB 14:30
PROVIDERS: Family Medicine
DX: R35.0 Frequency of micturition (principal)

== ENCOUNTER → 2020-06-06 | Outpatient (CLI) | payer MEDICARE, BC ==
[2020-06-06 13:49] LABS: URINE APPEARANCE CLEAR; URINE BILIRUBIN NEGATIVE (NEGATIVE); URINE BLOOD NEGATIVE (NEGATIVE); URINE COLOR YELLOW; URINE GLUCOSE NEGATIVE (NEGATIVE); URINE KETONE NEGATIVE (NEGATIVE); URINE LEUKOCYTE ESTERASE NEGATIVE (NEGATIVE); URINE NITRATE NEGATIVE (NEGATIVE); URINE PROTEIN(semi-quant) TRACE mg/dL (NEGATIVE); URINE UROBILINOGEN NORMAL (NORMAL); URINE WBC 0-1 /hpf (0-3)
[2020-06-06 13:50] LABS: URINE MUCUS PRESENT (NOT PRESENT)
== END ==
LOC: LAB 13:21
PROVIDERS: Family Medicine
DX: R35.8 Other polyuria (principal); R50.9 Fever, unspecified; R10.9 Unspecified abdominal pain; R11.0 Nausea

== ENCOUNTER → 2020-06-22 | Outpatient (CLI) | payer MEDICARE, BC ==
[2020-06-22 11:33] LABS: ALBUMIN 3.9 g/dL (3.4-4.8); POTASSIUM 4.2 mmol/L (3.5-5.1)
[2020-06-22 11:34] LABS: CALCIUM 9.1 mg/dL (8.3-10.5)
[2020-06-22 11:35] LABS: TOTAL PROTEIN 6.2 g/dL (6.2-8.1)
[2020-06-22 11:37] LABS: TOTAL BILIRUBIN 0.5 mg/dL (0.2-1.2)
== END ==
LOC: LAB 09:57
PROVIDERS: Family Medicine
DX: Z12.5 Encounter for screening for malignant neoplasm of prostate (principal); E78.00 Pure hypercholesterolemia, unspecified; R56.1 Post traumatic seizures

== ENCOUNTER → 2020-08-30 | Outpatient (CLI) | payer MEDICARE, BC | LOC: LAB 08:49 | DX: R56.1 Post traumatic seizures (principal) ==

== ENCOUNTER → 2020-11-17 | Outpatient (CLI) | payer MEDICARE, BC ==
[2020-11-17 16:42] LABS: ALBUMIN 3.9 g/dL (3.4-4.8); POTASSIUM 4.3 mmol/L (3.5-5.1)
[2020-11-17 16:45] LABS: TOTAL PROTEIN 6.3 g/dL (6.2-8.1)
[2020-11-17 16:46] LABS: TOTAL BILIRUBIN 0.4 mg/dL (0.2-1.2)
[2020-11-17 17:42] LABS: URINE APPEARANCE HAZY; URINE BILIRUBIN NEGATIVE (NEGATIVE); URINE BLOOD NEGATIVE (NEGATIVE); URINE COLOR YELLOW; URINE GLUCOSE NEGATIVE (NEGATIVE); URINE KETONE 1+ (NEGATIVE); URINE LEUKOCYTE ESTERASE NEGATIVE (NEGATIVE); URINE MUCUS PRESENT (NOT PRESENT); URINE NITRATE NEGATIVE (NEGATIVE); URINE PROTEIN(semi-quant) TRACE mg/dL (NEGATIVE); URINE UROBILINOGEN NORMAL (NORMAL)
== END ==
LOC: LAB 16:16
PROVIDERS: Family Medicine
DX: R35.8 Other polyuria (principal)

== ENCOUNTER → 2021-01-18 | Outpatient (CLI) | payer MEDICARE, BC ==
[2021-01-18 18:08] LABS: PH-URINE 7.5 (5.0 - 8.0); URINE APPEARANCE CLEAR; URINE BILIRUBIN NEGATIVE (NEGATIVE); URINE BLOOD NEGATIVE (NEGATIVE); URINE COLOR YELLOW; URINE GLUCOSE NEGATIVE (NEGATIVE); URINE KETONE NEGATIVE (NEGATIVE); URINE LEUKOCYTE ESTERASE NEGATIVE (NEGATIVE); URINE NITRATE NEGATIVE (NEGATIVE); URINE PROTEIN(semi-quant) NEGATIVE (NEGATIVE); URINE UROBILINOGEN NORMAL (NORMAL); URINE WBC 0-1 /hpf (0-3)
== END ==
LOC: LAB 16:34
PROVIDERS: Family Medicine
DX: N39.0 Urinary tract infection, site not specified (principal)

== ENCOUNTER → 2021-02-09 | Outpatient (CLI) | payer MEDICARE, BC ==
[2021-02-09 18:48] LABS: URINE APPEARANCE CLOUDY; URINE BILIRUBIN NEGATIVE (NEGATIVE); URINE BLOOD NEGATIVE (NEGATIVE); URINE COLOR YELLOW; URINE GLUCOSE NEGATIVE (NEGATIVE); URINE KETONE 1+ (NEGATIVE); URINE LEUKOCYTE ESTERASE NEGATIVE (NEGATIVE); URINE NITRATE NEGATIVE (NEGATIVE); URINE PROTEIN(semi-quant) TRACE mg/dL (NEGATIVE); URINE UROBILINOGEN NORMAL (NORMAL)
== END ==
LOC: LAB 15:58
PROVIDERS: Family Medicine
DX: R39.15 Urgency of urination (principal)

== ENCOUNTER → 2021-02-20 | Outpatient (CLI) | payer MEDICARE, BC ==
[2021-02-20 14:48] LABS: URINE APPEARANCE HAZY; URINE COLOR AMBER
[2021-02-20 14:49] LABS: URINE BILIRUBIN NEGATIVE (NEGATIVE); URINE BLOOD NEGATIVE (NEGATIVE); URINE GLUCOSE NEGATIVE (NEGATIVE); URINE KETONE NEGATIVE (NEGATIVE); URINE LEUKOCYTE ESTERASE TRACE (NEGATIVE); URINE NITRATE NEGATIVE (NEGATIVE); URINE PROTEIN(semi-quant) TRACE mg/dL (NEGATIVE); URINE UROBILINOGEN NORMAL (NORMAL)
[2021-02-20 14:50] LABS: URINE MUCUS PRESENT (NOT PRESENT)
== END ==
LOC: LAB 13:57
PROVIDERS: Family Medicine
DX: R82.71 Bacteriuria (principal)

== ENCOUNTER → 2021-04-06 | Outpatient (CLI) | payer MEDICARE, BC | LOC: LAB 13:59 | DX: E11.9 Type 2 diabetes mellitus without complications (principal) ==

== ENCOUNTER 2021-08-15 16:13 | Emergency (ER) | payer MEDICARE, BC ==
[~2021-08-15] VITALS: Ht 185.4 cm; Wt 132.5 kg
[2021-08-15 16:55] LABS: BASO # 0.02 K/mm3 (0.02-0.10); EOS # 0.01 K/mm3 (0.04-0.40); EOS % 0.2 % (0.0-4.0); HEMATOCRIT 40.1 % (42.0-52.0); HEMOGLOBIN 13.3 g/dL (13.5-18.0); LYMPH# 1.19 K/mm3 (1.50-4.00); MEAN CELL VOLUME 90 fl (78-100); MEAN CORPUSCULAR HEMOGLOBIN 30 pg (27-31); MEAN CORPUSCULAR HGB CONC 33 g/dL (33-37); MEAN PLATELET VOLUME 9.4 fl (7.4-10.4); MONO # 0.97 K/mm3 (0.20-0.80); NEU # 4.33 K/mm3 (1.40-6.50); PLATELET COUNT 107 K/mm3 (130-400); RED BLOOD COUNT 4.46 M/mm3 (4.20-5.60); RED CELL DISTRIBUTION WIDTH 13.2 % (11.5-14.5); WHITE BLOOD COUNT 6.6 K/mm3 (4.8-10.8)
[2021-08-15 16:59] LABS: ALBUMIN 3.4 g/dL (3.4-4.8); POTASSIUM 4.1 mmol/L (3.5-5.1)
[2021-08-15 17:00] LABS: CALCIUM 8.6 mg/dL (8.3-10.5)
[2021-08-15 17:02] LABS: TOTAL PROTEIN 5.9 g/dL (6.2-8.1)
[2021-08-15 17:03] LABS: TOTAL BILIRUBIN 0.4 mg/dL (0.2-1.2)
[2021-08-15 17:23] LABS: D-DIMER 0.34 mg/L FEU (0.15-0.50)
[2021-08-15 18:13] LABS: URINE APPEARANCE HAZY; URINE COLOR YELLOW
[2021-08-15 18:14] LABS: PH-URINE 5.5 (5.0 - 8.0); URINE BILIRUBIN 1+ (NEGATIVE); URINE BLOOD NEGATIVE (NEGATIVE); URINE GLUCOSE NEGATIVE (NEGATIVE); URINE KETONE 1+ (NEGATIVE); URINE LEUKOCYTE ESTERASE TRACE (NEGATIVE); URINE NITRATE NEGATIVE (NEGATIVE); URINE PROTEIN(semi-quant) TRACE (NEGATIVE); URINE UROBILINOGEN 1 mg/dL (NORMAL)
[2021-08-15 18:15] LABS: URINE MUCUS PRESENT (NOT PRESENT)
[2021-08-15] MEDS ORDERED: DEPAKOTE250 M1 PO (18:44)
[2021-08-15] MEDS ORDERED: DUTASTERIDE0.5 MG PO (18:45)
[2021-08-15] MEDS ORDERED: GLUCOPHAGE PO (18:46)
[2021-08-15] MEDS ORDERED: ATROVENT HFA IH (18:48)
[2021-08-15] MEDS ORDERED: SIMVASTATIN40 M1 PO (18:48)
[2021-08-15] MEDS ORDERED: HYDROCORTISONE30 G3 RC (18:50)
[2021-08-15 18:57] VITALS: BP 145/86
[2021-08-16] MEDS ORDERED: LOPRESSOR 225 MG/TAB PO (07:20)
== END 2021-08-15 18:57 | disposition other institution (70) ==
LOC: ED 16:13
PROVIDERS: Physician Assistant
DX: U07.1 COVID-19 (principal); J44.9 Chronic obstructive pulmonary disease, unspecified; I63.9 Cerebral infarction, unspecified; I10 Essential (primary) hypertension; E11.9 Type 2 diabetes mellitus without complications; Z79.899 Other long term (current) drug therapy; Z79.82 Long term (current) use of aspirin; Z79.84 Long term (current) use of oral hypoglycemic drugs
CPT/HCPCS: J7030

== ENCOUNTER 2021-08-15 19:06 | Inpatient (IN) | payer MEDICARE, BC, MEDICAID ==
[~2021-08-15] VITALS: Ht 185.4 cm; Wt 128.1 kg
[~2021-08-15 19:06] MED LIST changes: +ATROVENT HFA IH; +DUTASTERIDE0.5 MG PO; +GLUCOPHAGE PO; +HYDROCORTISONE30 G3 RC; +SIMVASTATIN40 M1 PO
[2021-08-15 21:20] VITALS: BP 145/86
[2021-08-15 22:00] VITALS: BP 145/86
[2021-08-16 02:07] VITALS: BP 147/76
[2021-08-16 05:43] VITALS: BP 144/85
[2021-08-16] MEDS ORDERED: LOPRESSOR 225 MG/TAB PO (07:20)
[2021-08-16 08:53] LABS: ALBUMIN 3.3 g/dL (3.4-4.8); POTASSIUM 4.3 mmol/L (3.5-5.1)
[2021-08-16 08:55] LABS: CALCIUM 8.5 mg/dL (8.3-10.5)
[2021-08-16 08:56] LABS: HEMATOCRIT 39.5 % (42.0-52.0); HEMOGLOBIN 13.1 g/dL (13.5-18.0); MEAN CELL VOLUME 89 fl (78-100); MEAN CORPUSCULAR HEMOGLOBIN 30 pg (27-31); MEAN CORPUSCULAR HGB CONC 33 g/dL (33-37); MEAN PLATELET VOLUME 10.2 fl (7.4-10.4); PLATELET COUNT 99 K/mm3 (130-400); RED BLOOD COUNT 4.42 M/mm3 (4.20-5.60); TOTAL PROTEIN 5.7 g/dL (6.2-8.1); WHITE BLOOD COUNT 5.1 K/mm3 (4.8-10.8)
[2021-08-16 08:58] LABS: TOTAL BILIRUBIN 0.4 mg/dL (0.2-1.2)
[2021-08-16 09:07] LABS: PROTHROMBIN TIME 10.2 SECONDS (9.0-12.0)
[2021-08-16 09:35] LABS: BAND 1 % (0-10)
[2021-08-16 09:36] LABS: LYMPHOCYTE 12 % (20-51); MONOCYTE 8 % (3-10); NEUTROPHILS 79 % (42-75)
[2021-08-16 10:40] VITALS: BP 156/99
[2021-08-16 12:00] VITALS: BP 144/84
[2021-08-16 14:06] VITALS: BP 168/90
[2021-08-16 17:21] VITALS: BP 144/77
[2021-08-17 02:18] VITALS: BP 143/83
[2021-08-17 05:46] VITALS: BP 141/77
[2021-08-17 07:20] LABS: BASO # 0.01 K/mm3 (0.02-0.10); HEMATOCRIT 39.4 % (42.0-52.0); HEMOGLOBIN 12.9 g/dL (13.5-18.0); LYMPH# 1.17 K/mm3 (1.50-4.00); MEAN CELL VOLUME 90 fl (78-100); MEAN CORPUSCULAR HEMOGLOBIN 29 pg (27-31); MEAN CORPUSCULAR HGB CONC 33 g/dL (33-37); MEAN PLATELET VOLUME 10.4 fl (7.4-10.4); MONO # 0.55 K/mm3 (0.20-0.80); NEU # 4.47 K/mm3 (1.40-6.50); PLATELET COUNT 109 K/mm3 (130-400); RED BLOOD COUNT 4.39 M/mm3 (4.20-5.60); WHITE BLOOD COUNT 6.3 K/mm3 (4.8-10.8)
[2021-08-17 07:37] LABS: ALBUMIN 3.2 g/dL (3.4-4.8)
[2021-08-17 07:38] LABS: POTASSIUM 4.1 mmol/L (3.5-5.1)
[2021-08-17 07:39] LABS: CALCIUM 8.8 mg/dL (8.3-10.5)
[2021-08-17 07:40] LABS: TOTAL PROTEIN 5.6 g/dL (6.2-8.1)
[2021-08-17 07:42] LABS: TOTAL BILIRUBIN 0.3 mg/dL (0.2-1.2)
[2021-08-17 10:00] VITALS: BP 135/70
[2021-08-17 14:00] VITALS: BP 136/72
[2021-08-17 18:03] VITALS: BP 160/83
[2021-08-17 22:06] VITALS: BP 128/79
[2021-08-18 01:47] VITALS: BP 140/78
[2021-08-18 06:12] VITALS: BP 148/82
[2021-08-18] MEDS ORDERED: DECADRON 4MG TAB4 MG PO (08:27)
[2021-08-18] MEDS ORDERED: MORGIDOX 1X100100 MG PO (08:28)
[2021-08-18 09:57] VITALS: BP 147/77
== END 2021-08-18 10:41 | DRG 178 ==
LOC: MED/SURG 19:06
PROVIDERS: Family Medicine; ADMIT Physician Assistant
PROC: XW033E5 Introduction of Remdesivir Anti-infective into Peripheral Vein, Percutaneous Approach, New Technology Group 5 (ICD-10-PCS; principal; 2021-08-15)
PROC: 3E0DX3Z Introduction of Anti-inflammatory into Mouth and Pharynx, External Approach (ICD-10-PCS; 2021-08-15)
DX: U07.1 COVID-19 (principal); I69.954 Hemiplegia and hemiparesis following unspecified cerebrovascular disease affecting left non-dominant side; R09.02 Hypoxemia; J44.9 Chronic obstructive pulmonary disease, unspecified; E11.9 Type 2 diabetes mellitus without complications; I10 Essential (primary) hypertension; G40.909 Epilepsy, unspecified, not intractable, without status epilepticus; E78.5 Hyperlipidemia, unspecified; Z66 Do not resuscitate; R53.81 Other malaise; Z79.84 Long term (current) use of oral hypoglycemic drugs; Z79.82 Long term (current) use of aspirin; Z88.8 Allergy status to other drugs, medicaments and biological substances
CPT/HCPCS: J0248; J1100; J1650; J7030; J7050

== ENCOUNTER 2021-10-25 15:14 | Emergency (ER) | payer MEDICARE, BC, MEDICAID ==
[~2021-10-25 15:14] MED LIST changes: +DECADRON 4MG TAB4 MG PO; +LOPRESSOR 225 MG/TAB PO; +MORGIDOX 1X100100 MG PO
[2021-10-25 16:05] LABS: HEMATOCRIT 42.1 % (42.0-52.0); HEMOGLOBIN 14.1 g/dL (13.5-18.0); MEAN CELL VOLUME 89 fl (78-100); MEAN CORPUSCULAR HEMOGLOBIN 30 pg (27-31); MEAN CORPUSCULAR HGB CONC 34 g/dL (33-37); MEAN PLATELET VOLUME 9.6 fl (7.4-10.4); PLATELET COUNT 106 K/mm3 (130-400); RED BLOOD COUNT 4.73 M/mm3 (4.20-5.60); RED CELL DISTRIBUTION WIDTH 13.2 % (11.5-14.5); WHITE BLOOD COUNT 5.2 K/mm3 (4.8-10.8)
[2021-10-25 16:16] LABS: ALBUMIN 3.5 g/dL (3.4-4.8); POTASSIUM 4.2 mmol/L (3.5-5.1)
[2021-10-25 16:19] LABS: TOTAL PROTEIN 5.5 g/dL (6.2-8.1)
[2021-10-25 16:20] LABS: TOTAL BILIRUBIN 0.6 mg/dL (0.2-1.2)
[2021-10-25 16:45] LABS: LYMPHOCYTE 12 % (20-51); MONOCYTE 6 % (3-10); NEUTROPHILS 82 % (42-75)
[2021-10-25 17:00] LABS: URINE APPEARANCE CLEAR; URINE BILIRUBIN NEGATIVE (NEGATIVE); URINE BLOOD NEGATIVE (NEGATIVE); URINE COLOR DARK YELLOW; URINE GLUCOSE NEGATIVE (NEGATIVE); URINE KETONE 2+ (NEGATIVE); URINE LEUKOCYTE ESTERASE TRACE (NEGATIVE); URINE NITRATE NEGATIVE (NEGATIVE); URINE PROTEIN(semi-quant) 1+ (NEGATIVE); URINE UROBILINOGEN 1 mg/dL (NORMAL)
[2021-10-25 17:01] LABS: URINE MUCUS PRESENT (NOT PRESENT)
[2021-10-25] MEDS ORDERED: BACTRIM DS TAB1 EACH PO (17:07)
[2021-10-25 17:48] VITALS: BP 140/80
== END 2021-10-25 17:48 ==
LOC: ED 15:14
PROVIDERS: Family Medicine
DX: N39.0 Urinary tract infection, site not specified (principal); E66.9 Obesity, unspecified; Z88.1 Allergy status to other antibiotic agents

== ENCOUNTER → 2022-01-22 | Outpatient (CLI) | payer MEDICARE, BC, MEDICAID ==
[~2022-01-22] MED LIST changes: +BACTRIM DS TAB1 EACH PO
[2022-01-22 09:49] LABS: URINE APPEARANCE CLEAR; URINE BILIRUBIN NEGATIVE (NEGATIVE); URINE BLOOD NEGATIVE (NEGATIVE); URINE COLOR ORANGE; URINE GLUCOSE NEGATIVE (NEGATIVE); URINE KETONE NEGATIVE (NEGATIVE); URINE LEUKOCYTE ESTERASE TRACE (NEGATIVE); URINE NITRATE POSITIVE (NEGATIVE); URINE PROTEIN(semi-quant) NEGATIVE (NEGATIVE); URINE UROBILINOGEN NORMAL (NORMAL)
== END ==
LOC: LAB 08:48
PROVIDERS: Family Medicine
DX: R35.0 Frequency of micturition (principal)